=== PATIENT | male | born 1970 ===

== ENCOUNTER 2019-04-22 14:23 | Inpatient (IN) | payer OTHER ==
[2019-04-22 19:57] VITALS: BMI 26.2
--- NOTE | 2019-04-22 21:20 | HP ---
CIWA Score - Admission Criteria [facility]ASAS Guidelines: Admission for Medically Managed Detox: Requires at least one of the followin. CIWA greater than 12 2. Seizures within the past 24 hours 3. Delirium tremens within the past 24 hours 4. Hallucinations within the past 24 hours 5. Acute intervention needed for co occurring medical disorder 6. Acute intervention needed for co occurring psychiatric disorder 7. Severe withdrawal that cannot be handled at a lower level of care (continued vomiting, continued diarrhea, abnormal vital signs) requiring intravenous medication and/or fluids 8. Admission ROS S - HPI Chief Complaint: seeking inpatient rehab for cocaine and cannabis dependence Allergies/Adverse Reactions: Allergies Allergy/AdvReac Type Severity Reaction Status Date / Time No Known Allergies Allergy Verified 04/22/19 19:30 History of Present Illness: 49 Y.O. MALE WITH CANNABIS AND COCAINE DEPENDENCE HERE FOR INPATIENT REHAB. CLIENT IS REFERRED BY HIS RESIDENTIAL PROGRAM [facility]. HE IS KNOWN TO THIS PROGRAM LAST ADMISSION 4 YEARS AGO. DENIES ANY INPATIENT SUBSTANCE ABUSE TXMENT. REPORTS LONGEST CLEAN TIME 3 YEARS RELAPSING 1 MONTH AGO. DENIES HX/O SI /HI/AVH/ SEIZURE D/O. DOMICILED, DISABLED, DENIES LEGALS. Exam Limitations: Physical Impairment (LEGALLY BLIND IN BOTH EYES) - Ebola screening Have you traveled outside of the country in the last 21 days: No (N) Have you had contact with anyone from an Ebola affected area: No Do you have a fever: No - Review of Systems Constitutional: Malaise EENT: reports: Eye Pain (CHRONIC 2/2 DETACHED RETINA) Respiratory: reports: No Symptoms reported Cardiac: reports: No Symptoms Reported GI: reports: No Symptoms Reported : reports: No Symptoms Reported Musculoskeletal: reports: Back Pain (CHRONIC DUE TO HERNIATED DISK) Integumentary: reports: No Symptoms Reported Neuro: reports: No Symptoms reported Endocrine: reports: No Symptoms Reported Hematology: reports: No Symptoms Reported, Other (SICKLE CELL DISEASE) Psychiatric: reports: Orientated x3, Agitated (IRRITABLE), Anxious Other Systems: Reviewed and Negative Patient History - Patient Medical History Hx Anemia: No Hx Asthma: Yes Hx Chronic Obstructive Pulmonary Disease (COPD): No Hx Cancer: Yes (rectal cancer 11/29) Hx Cardiac Disorders: No Hx Congestive Heart Failure: No Hx Hypertension: Yes Hx Hypercholesterolemia: No Hx Pacemaker: No HX Cerebrovascular Accident: No Hx Seizures: No Hx Dementia: No Hx Diabetes: No Hx Gastrointestinal Disorders: No Hx Liver Disease: No Hx Genitourinary Disorders: No Hx Sexually Transmitted Disorders: Yes (SYPHILLIS) Hx Renal Disease (ESRD): No Hx Thyroid Disease: No Hx Human Immunodeficiency Virus (HIV): Yes Hx Hepatitis C: Yes (TX'ED) Hx Depression: No Hx Suicide Attempt: No Hx Bipolar Disorder: Yes Hx Schizophrenia: No Other Medical History: LEGALLY BLIND 2/2 DETACHED RETINA, SICKLE CELL DISEASE - Patient Surgical History Past Surgical History: Yes Other Surgical History: anal resection and colostomy reversed, R C/W DG CATH (NOT IN USE) Anesthesia Reaction: No - PPD History Previous Implant?: Yes Documented Results: Negative w/proof Implanted On Prior [facility] Admission?: Yes Date: 06/15/15 Results: 0MM PPD to be Administered?: Yes - Smoking Cessation Smoking history: Current every day smoker Have you smoked in the past 12 months: Yes Aproximately how many cigarettes per day: 6 Cigars Per Day: 0 Hx Chewing Tobacco Use: No Initiated information on smoking cessation: Yes 'Breaking Loose' booklet given: 04/22/19 - Substance & Tx. History Hx Alcohol Use: No Hx Substance Use: Yes Substance Use Type: Cocaine, Marijuana Hx Substance Use Treatment: Yes ([facility]) - Substances abused Crack Substance route: Smoking Frequency: Daily Amount used: 400 dollars Age of first use: 49 Date of last use: 04/19/19 Cocaine Substance route: Smoking Frequency: 1-2 times per week Amount used: 100 t0 200 dollars Age of first use: 39 Date of last use: 04/15/19 Marijuana/Hashish Substance route: Smoking Frequency: 1-2 times per week Amount used: 50 dollars Age of first use: 19 Date of last use: 04/15/19 Family Disease History - Family Disease History Family Disease History: Diabetes: Grandparent (, etoh), Other: Mother ( heroin, hiv) Admission Physical Exam S - Vital Signs Vital Signs: Vital Signs - 24 hr 04/22/19 19:43 Temperature 97.1 F L Pulse Rate 67 Respiratory 16 Rate Blood Pressure 104/75 - Physical General Appearance: Yes: Irritable HEENTM: Yes: EOMI (UNABLE TO ASSESS. CLIENT LEGALLY BLIND), Normocephalic, LUTHER (NOT REACTIVE. white glow to right pupil), Pharynx Normal Respiratory: Yes: Chest Non-Tender, Lungs Clear, Normal Breath Sounds, No Respiratory Distress, No Accessory Muscle Use Neck: Yes: No masses,lesions,Nodules, Supple, Trachea in good position Breast: Yes: Breast Exam Deferred Cardiology: Yes: Regular Rhythm, Regular Rate, S1, S2 Abdominal: Yes: Normal Bowel Sounds, Non Tender, Soft Genitourinary: Yes: Within Normal Limits Back: Yes: Vertebral Tenderness Musculoskeletal: Yes: full range of Motion Extremities: Yes: Normal Capillary Refill, Normal Range of Motion, Non-Tender Neurological: Yes: Fully Oriented, Alert, Motor Strength 5/5, Depressed Affect Integumentary: Yes: Dry, Warm Lymphatic: Yes: Within Normal Limits - Diagnostic (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 (7) Marijuana dependence Current Visit: Yes Status: Acute Comment: . (8) AIDS Current Visit: Yes Status: Chronic Comment: . (9) Hypertension Current Visit: Yes Status: Chronic Qualifiers: Hypertension type: essential hypertension Qualified Code(s): I10 - Essential (primary) hypertension Comment: . (10) Nicotine dependence Current Visit: Yes Status: Chronic Qualifiers: Nicotine product type: cigarettes Substance use status: uncomplicated Qualified Code(s): F17.210 - Nicotine dependence, cigarettes, uncomplicated Comment: . (11) Hx of sickle cell disease Current Visit: Yes Status: Acute (12) Port-A-Cath in place Current Visit: Yes Status: Chronic Comment: right chest Cleared for Admission [facility] - Detox or Rehab Detox Regimen/Protocol: Not Applicable Claeared for Rehab Admission: Yes Breathalyzer - Breathalyzer Breathalyzer: 0 Urine Drug Screen - Test Device Lot number: [id number] Expiration date: 01/13/21 - Control Is test valid?: Yes - Results Drug screen NEGATIVE: No Urine drug screen results: TAL-Cocaine Inpatient Rehab Admission - Rehab Decision to Admit Inpatient rehab admission?: Yes - Initial Determination Are CD services needed?: Yes Free of communicable disease: No Not in need of hospitalization: Yes - Rehab Admission Criteria Previous failed treatment: Yes Poor recovery environment: Yes Comorbidities: Yes Lacks judgement: No Patient is meeting Inpatient Rehab admission criteria:: Yes
[2019-04-22] MEDS ORDERED: MAGNESIUM CITRATE 300 ML BOTTLE PO PRN (21:29)
[2019-04-22] MEDS ORDERED: MAGNESIUM HYDROX 2400MG/30ML ORAL SUSPENSION 30 ML CUP PO PRN (21:29)
[2019-04-22] MEDS ORDERED: LOPERAMIDE HCL 2 MG CAPSULE PO PRN (21:29)
[2019-04-22] MEDS ORDERED: NICOTINE POLACRILEX 2 MG GUM BC PRN (21:29)
[2019-04-22] MEDS ORDERED: guaiFENesin 200 MG/10 ML 10 ML UNIT-DOSE CUPS PO PRN (21:29)
[2019-04-22] MEDS ORDERED: P-EPHED 60MG/TRIPROLIDI 2.5MG TABLET PO PRN (21:29)
[2019-04-22] MEDS ORDERED: ACETAMINOPHEN 325 MG TABLET (FP) PO PRN (21:29)
[2019-04-22] MEDS ORDERED: MAG HYDROX/AL HYDROX/SIMETH 30 ML UNIT-DOSE CUP PO PRN (21:29)
[2019-04-22] MEDS ORDERED: MENTHOL/PHENOL 1 EACH UD MM PRN (21:29)
[2019-04-22] MEDS ORDERED: IBUPROFEN 400 MG TABLET (FP) PO PRN (21:29)
[2019-04-22] MEDS ORDERED: hydrOXYzine PAMOATE 50 MG CAPSULE (FP) PO PRN (21:29)
[2019-04-22] MEDS ORDERED: MELATONIN 5 MG TABLETS PO PRN (22:00)
[2019-04-22] MEDS ORDERED: TUBERCULIN PPD 5 TU/0.1ML VIAL ID ONE (23:11)
[2019-04-22] MEDS: THIAMINE HCL 100 MG TABLET (FP) PO SCH (23:18)
--- NOTE | 2019-04-23 08:38 | EKG ---
Test Reason : Blood Pressure : / mmHG Vent. Rate : 063 BPM Atrial Rate : 063 BPM P-R Int : 188 ms QRS Dur : 100 ms QT Int : 424 ms P-R-T Axes : 052 012 037 degrees QTc Int : 433 ms NORMAL SINUS RHYTHM EARLY REPOLARIZATION NORMAL ECG NO PREVIOUS ECGS AVAILABLE Confirmed by GAEL LEOS, BRODERICK ([id number]) on 04/23/2019 8:37:49 AM Referred By: Confirmed By:BRODERICK MAYO MD
[2019-04-23] MEDS: PATIENT'S OWN MEDICATION (NON-FORMULARY) (Dolutegravir Sodium [Tivicay] 50 MG) PO SCH (10:38)
[2019-04-23] MEDS: SYMTUZA PO SCH (10:38)
[2019-04-23] MEDS: PRENATAL VITAMINS W/ FOLIC ACID TABLET (FP) PO SCH (10:38)
[2019-04-23] MEDS: NICOTINE 14 MG/24 HOURS TOPICAL PATCH TD SCH (10:39)
[2019-04-23 11:45] LABS: PH,URINE 7.5 (5.0-8.0); URINE APPEARANCE CLEAR; URINE BILIRUBIN NEGATIVE (NEGATIVE); URINE COLOR YELLOW; URINE GLUCOSE (UA) NEGATIVE (NEGATIVE); URINE KETONE NEGATIVE (NEGATIVE); URINE LEUK ESTERASE NEGATIVE (NEGATIVE); URINE NITRITE NEGATIVE (NEGATIVE); URINE PROTEIN NEGATIVE (NEGATIVE)
[2019-04-23 12:43] LABS: ALBUMIN 3.5 g/dl (3.4-5.0); BILIRUBIN,TOTAL 0.2 mg/dL (0.2-1); BLOOD UREA NITROGEN 8.8 mg/dL (7-18); CALCIUM 8.9 mg/dL (8.5-10.1); CREATININE 1.3 mg/dL (0.55-1.3); POTASSIUM 3.9 mmol/L (3.5-5.1); TOT PROT 7.2 g/dl (6.4-8.2)
[2019-04-23 12:44] LABS: HEMATOCRIT 41.9 % (35.4-49); HEMOGLOBIN 14.2 GM/dL (11.7-16.9); MCH 30.9 pg (25.7-33.7); MCHC 33.9 g/dl (32.0-35.9); MEAN CELL VOLUME 91.3 fl (80-96); MEAN PLT VOLUME 7.2 fl (7.5-11.1); RBC 4.59 M/mm3 (4.00-5.60); RDW 14.1 % (11.9-15.9); WHITE BLOOD COUNT 2.2 K/mm3 (4.0-10.0)
[2019-04-23 12:56] LABS: RPR REACTIVE 1:4 (NONREACTIVE)
[2019-04-23 12:57] LABS: TREPONEMA ANTIBODY PREVIOUSLY REACTIVE (NONREACTIVE)
--- NOTE | 2019-04-23 13:00 | CONSULT ---
[facility] Psychiatric Consult - Data Date of interview: 04/23/19 Admission source: [facility] Identifying data: Readmission to [facility] for this 49 y/o AA male self- referred for rehabilitative care to address addictions (cannabis, cocaine) co- morbid with substance-induced mood disorder. Examined at [address] Patient is single, no children, domiciled, unemployed, disabled (blind) and supported on [employer] funds. Substance Abuse History: Confirmed by patient in this interview. Details in current [facility] report as follows : Smoking history: Current every day smoker. Have you smoked in the past 12 months: Yes. Aproximately how many cigarettes per day: 6. Cigars Per Day: 0. Hx Chewing Tobacco Use: No. Initiated information on smoking cessation: Yes. 'Breaking Loose' booklet given: . - Substance & Tx. History. Hx Alcohol Use: No. Hx Substance Use: Yes. Substance Use Type: Cocaine, Marijuana. Hx Substance Use Treatment: Yes ([facility]) . - Substances abused. Crack. Substance route: Smoking. Frequency: Daily. Amount used: 400 dollars. Age of first use: 49. Date of last use: 03/04. Cocaine. Substance route: Smoking. Frequency: 1-2 times per week. Amount used: 100 t0 200 dollars. Age of first use: 39. Date of last use: 04/15. Marijuana/Hashish. Substance route: Smoking. Frequency: 1-2 times per week. Amount used: 50 dollars. Age of first use: 19. Date of last use: Medical History: Remarkable for HIV infection since 1999 (on ART medications), hepatitis C, antecedent of syphilis (treated), history of rectal cancer (anal resection and colostomy reversed), still with rosa cath (not in use), hypertension, sickle cell disease, blindness (detachment of retina : both eyes) and a remote history of surgery for strabismus (childhood). Psychiatric History: First contact with a psychiatrist occurred in 2012 : mood dysregulation, frequent oubursts. Patient admits to a history of " a few " psychiatric hospitalizations ([facility], [facility]) . Most recent hospitalization was in 2017 ([facility]). Mr Garcia reports the diagnosis of Bipolar Disorder and sporadic adherence to OPD care. States that he is prescribed " only trazodone 500 mg at bedtime ". Patient denies history of suicide attempts. Additional Comment: Urine drug screen results: TAL-Cocaine. Noted. Mental Status Exam - Mental Status Exam Alert and Oriented to: Time, Place, Person Cognitive Function: Good Patient Appearance: Well Groomed (fair level of personal hygiene) Mood: Withdrawn, Anxious, Apprehensive Affect: Mood Congruent, Constricted (walks with a stick ; wearing earrings) Patient Behavior: Fatigued, Appropriate, Cooperative Speech Pattern: Clear, Appropriate (fair historian) Voice Loudness: Normal Thought Process: Goal Oriented Thought Disorder: Not Present Hallucinations: Denies Suicidal Ideation: Denies Homicidal Ideation: Denies Insight/Judgement: Fair Sleep: Poorly, Difficulty falling asleep Appetite: Good Gait/Station: Normal (needs someone for assistance in his moves around the unit) Psychiatric Findings - Problem List ([place] 1, 2,3) (1) Cocaine dependence Current Visit: Yes Status: Chronic Comment: . (2) Marijuana dependence Current Visit: Yes Status: Chronic Comment: . (3) Nicotine dependence Current Visit: Yes Status: Chronic Qualifiers: Nicotine product type: cigarettes Substance use status: uncomplicated Qualified Code(s): F17.210 - Nicotine dependence, cigarettes, uncomplicated Comment: . (4) Substance induced mood disorder Current Visit: Yes Status: Chronic (5) Insomnia Current Visit: Yes Status: Chronic Comment: . - Initial Treatment Plan Initial Treatment Plan: Falls precautions. Sleep hygiene. Psychoeducation. Support. Groups. Trazodone 100 mg po hs. Patient is made aware of the potential for priapism. Agrees with this plan of care. Observation.
[2019-04-23 19:19] LABS: PLATELET COUNT 210 K/MM3 (134-434)
[2019-04-23] MEDS: THIAMINE HCL 100 MG TABLET (FP) PO SCH (21:24)
[2019-04-23] MEDS: traZODone HCL 50 MG TABLET (FP) PO SCH (21:25)
[2019-04-24] MEDS: NICOTINE 14 MG/24 HOURS TOPICAL PATCH TD SCH (09:53)
[2019-04-24] MEDS: SYMTUZA PO SCH (09:53)
[2019-04-24] MEDS: PRENATAL VITAMINS W/ FOLIC ACID TABLET (FP) PO SCH (09:53)
[2019-04-24] MEDS: PATIENT'S OWN MEDICATION (NON-FORMULARY) (Dolutegravir Sodium [Tivicay] 50 MG) PO SCH (09:53)
[2019-04-24] MEDS: THIAMINE HCL 100 MG TABLET (FP) PO SCH (21:43)
[2019-04-24] MEDS: traZODone HCL 50 MG TABLET (FP) PO SCH (21:44)
[2019-04-25] MEDS: PRENATAL VITAMINS W/ FOLIC ACID TABLET (FP) PO SCH (10:56)
[2019-04-25] MEDS: PATIENT'S OWN MEDICATION (NON-FORMULARY) (Dolutegravir Sodium [Tivicay] 50 MG) PO SCH (10:56)
[2019-04-25] MEDS: SYMTUZA PO SCH (10:56)
[2019-04-25] MEDS: NICOTINE 14 MG/24 HOURS TOPICAL PATCH TD SCH (10:56)
[2019-04-25] MEDS: THIAMINE HCL 100 MG TABLET (FP) PO SCH (21:41)
[2019-04-25] MEDS: traZODone HCL 50 MG TABLET (FP) PO SCH (21:41)
[2019-04-26 07:01] VITALS: BP 119/79; PULSE 71; TEMP 97.6
--- NOTE | 2019-04-26 10:42 | PN ---
[facility] Progress Note (SOAP) Subjective: PT IS A 49 Y/O MALE WHO WAS ADMITTED ON 04/22/19 TO REHAB. PT EXPRESSED TO NURSING STAFF HE WANTS TO SIGN OUT TODAY TO GET BACK TO HIS HOME LIVING ARRANGEMENTS. PT REPORTS HE HAS A PCP DR. LOWE AT [facility]. PT MET WITH THE COUNSELOR KRANTHI BAE AND PT HAS BEEN RECOMMENDED TO THE [facility] ON [address], [place] FOR OUTPATIENT CD AFTERCARE. PT HAS A HX OF LEGALLY BLIND IN BOTH EYES AND AMBULATES WITH A LONG PROBING CANE. HX DG- CATH. ALERT O X 3. DENIES S/H/I. Objective: 04/26/19 12:08 Vital Signs - 24 hr 04/26/19 04/26/19 04/26/19 00:30 03:30 07:01 Temperature 97.6 F Pulse Rate 71 Respiratory 18 18 17 Rate Blood Pressure 119/79 Laboratory Tests 04/23/19 04/23/19 04/23/19 09:00 10:20 10:20 WBC 2.2 L RBC 4.59 Hgb 14.2 Hct 41.9 MCV 91.3 MCH 30.9 MCHC 33.9 RDW 14.1 Plt Count 210 MPV 7.2 L Sodium 144 Potassium 3.9 Chloride 108 H Carbon Dioxide 32 Anion Gap 5 L BUN 8.8 Creatinine 1.3 Est GFR (CKD-EPI)AfAm 73.74 Est GFR (CKD-EPI)NonAf 63.62 Random Glucose 79 Calcium 8.9 Total Bilirubin 0.2 AST 21 ALT 23 Alkaline Phosphatase 69 Total Protein 7.2 Albumin 3.5 Urine Color Yellow Urine Appearance Clear Urine pH 7.5 Ur Specific [place] 1.015 Urine Protein Negative Urine Glucose (UA) Negative Urine Ketones Negative Urine Blood Negative Urine Nitrite Negative Urine Bilirubin Negative Urine Urobilinogen 1.0 Ur Leukocyte Esterase Negative RPR Titer T.pallidum Ab (A) 04/23/19 10:20 WBC RBC Hgb Hct MCV MCH MCHC RDW Plt Count MPV Sodium Potassium Chloride Carbon Dioxide Anion Gap BUN Creatinine Est GFR (CKD-EPI)AfAm Est GFR (CKD-EPI)NonAf Random Glucose Calcium Total Bilirubin AST ALT Alkaline Phosphatase Total Protein Albumin Urine Color Urine Appearance Urine pH Ur Specific [place] Urine Protein Urine Glucose (UA) Urine Ketones Urine Blood Urine Nitrite Urine Bilirubin Urine Urobilinogen Ur Leukocyte Esterase RPR Titer Reactive 1:4 H T.pallidum Ab (A) Previously reactive Assessment: 04/26/19 12:08 NAD Plan: PT SIGNED OUT AMA FOLLOW UP WITH CD AFTERCARE RECOMMENDATION. FOLLOW UP WITH PCP FOR MEDICAL MANAGEMENT WITHIN 1 WEEK AFTER DISCHARGE.
[2019-04-26] MEDS: PATIENT'S OWN MEDICATION (NON-FORMULARY) (Dolutegravir Sodium [Tivicay] 50 MG) PO SCH (10:56)
[2019-04-26] MEDS: SYMTUZA PO SCH (10:56)
[2019-04-26] MEDS: NICOTINE 14 MG/24 HOURS TOPICAL PATCH TD SCH (10:56)
[2019-04-26] MEDS: PRENATAL VITAMINS W/ FOLIC ACID TABLET (FP) PO SCH (10:56)
== END 2019-04-26 12:40 | disposition left against medical advice (07) | DRG 770 ==
LOC: YASAS 14:23 → Y5N 22:23
PROVIDERS: ADMIT Neuromusculoskeletal Medicine & OMM; ATTEND Neuromusculoskeletal Medicine & OMM
PROC: HZ42ZZZ Group Counseling for Substance Abuse Treatment, Cognitive-Behavioral (ICD-10-PCS; principal; 2019-04-22)
DX: F14.20 Cocaine dependence, uncomplicated (principal); F12.20 Cannabis dependence, uncomplicated; F17.210 Nicotine dependence, cigarettes, uncomplicated; F19.24 Other psychoactive substance dependence with psychoactive substance-induced mood disorder; F31.9 Bipolar disorder, unspecified; B20 Human immunodeficiency virus [HIV] disease; G47.00 Insomnia, unspecified; I10 Essential (primary) hypertension; H33 Retinal detachments and breaks; H54.8 Legal blindness, as defined in USA; Z86.2 Personal history of diseases of the blood and blood-forming organs and certain disorders involving the immune mechanism; R26.2 Difficulty in walking, not elsewhere classified; Z99.89 Dependence on other enabling machines and devices; Z95.828 Presence of other vascular implants and grafts; Z86.19 Personal history of other infectious and parasitic diseases; Z85.048 Personal history of other malignant neoplasm of rectum, rectosigmoid junction, and anus
CPT/HCPCS: 36415; 80053; 81003; 85027; 86593; 86780; 93005; 93010

== ENCOUNTER 2023-01-19 13:38 | Inpatient (IN) | payer OTHER ==
[2023-01-19 14:14] VITALS: BMI 25.7
[2023-01-19] MEDS ORDERED: LOPERAMIDE HCL 2 MG CAPSULE PO PRN (15:55)
[2023-01-19] MEDS ORDERED: chlordiazePOXIDE HCL 25 MG CAPSULE PO PRN (15:55)
[2023-01-19] MEDS ORDERED: ACETAMINOPHEN 325 MG TABLET (FP) PO PRN ×2 (15:55)
[2023-01-19] MEDS ORDERED: MAG HYDROX/AL HYDROX/SIMETH 30 ML UNIT-DOSE CUP PO PRN (15:55)
[2023-01-19] MEDS ORDERED: BACLOFEN 10 MG TABLET (FP) PO PRN (15:55)
[2023-01-19] MEDS ORDERED: MAGNESIUM HYDROX 2400MG/30ML ORAL SUSPENSION 30 ML CUP PO PRN (15:55)
[2023-01-19] MEDS ORDERED: NALOXONE HCL (KLOXXADO) 8 MG SPRAY NS PRN (15:55)
[2023-01-19] MEDS ORDERED: POLYETHYLENE GLYCOL (HEALTHYLAX) 3350 17 GM PACKET PO PRN (15:55)
[2023-01-19] MEDS ORDERED: NICOTINE 10 MG CARTRIDGE (INHALER) IH PRN (15:55)
[2023-01-19] MEDS ORDERED: IBUPROFEN 400 MG TABLET (FP) PO PRN (15:55)
[2023-01-19] MEDS ORDERED: BISMUTH SUBSALICYLATE 524 MG/30 ML PO PRN (15:55)
[2023-01-19] MEDS ORDERED: hydrOXYzine PAMOATE 25 MG CAPSULE (FP) PO PRN (15:55)
[2023-01-19] MEDS ORDERED: IBUPROFEN 600 MG TABLET (FP) PO PRN (15:55)
[2023-01-19] MEDS ORDERED: DICYCLOMINE HCL 10 MG CAPSULE PO PRN (15:55)
[2023-01-19] MEDS ORDERED: BENZOCAINE/MENTHOL (CHLORASEPTIC ) LOZENGE MM PRN (15:55)
[2023-01-19] MEDS ORDERED: ONDANSETRON *ODT* 4 MG TABLET SL PRN (15:55)
[2023-01-19] MEDS: chlordiazePOXIDE HCL 25 MG CAPSULE PO SCH ×2 (19:13→22:45)
[2023-01-19] MEDS: PRENATAL VITAMINS W/ FOLIC ACID TABLET (FP) PO SCH (19:15)
[2023-01-19] MEDS: THIAMINE HCL 100 MG TABLET (FP) PO SCH (22:44)
[2023-01-19] MEDS: MELATONIN 5 MG TABLETS PO SCH (22:44)
[2023-01-20] MEDS: chlordiazePOXIDE HCL 25 MG CAPSULE PO SCH (05:57)
[2023-01-20] MEDS ORDERED: diazePAM 5 MG TABLET PO PRN (09:39)
[2023-01-20] MEDS: diazePAM 5 MG TABLET PO SCH ×3 (10:05→22:41)
[2023-01-20] MEDS: PRENATAL VITAMINS W/ FOLIC ACID TABLET (FP) PO SCH (10:05)
[2023-01-20 11:05] LABS: HEMATOCRIT 43.4 % (35.4-49); HEMOGLOBIN 14.2 GM/dL (11.7-16.9); MCH 28.9 pg (25.7-33.7); MCHC 32.8 g/dl (32.0-35.9); PLATELET COUNT 268 10^3/uL (134-434); RBC 4.93 M/mm3 (4.00-5.60); RDW 14.3 % (11.9-15.9); WHITE BLOOD COUNT 2.7 K/mm3 (4.0-10.0)
[2023-01-20 11:12] LABS: CALCIUM 9.3 mg/dL (8.5-10.1)
[2023-01-20 11:13] LABS: ALBUMIN 3.4 g/dl (3.4-5.0); BLOOD UREA NITROGEN 12.5 mg/dL (7-18)
[2023-01-20 11:18] LABS: CREATININE 1.1 mg/dL (0.55-1.3); TOT PROT 7.2 g/dl (6.4-8.2)
[2023-01-20 11:26] LABS: BILIRUBIN,TOTAL 0.2 mg/dL (0.2-1)
[2023-01-20] MEDS: LACTULOSE 20 GM/30 ML UDC (FOR ORAL USE ONLY) PO SCH ×3 (13:56→22:41)
[2023-01-20] MEDS: ARTIFICIAL TEARS (POLYVINYL ALCOHOL) OPTH DROPS OU PRN ×2 (17:20→22:43)
[2023-01-20] MEDS: QUEtiapine FUMARATE 50 MG TABLET PO SCH (22:40)
[2023-01-20] MEDS: MELATONIN 5 MG TABLETS PO SCH (22:40)
[2023-01-20] MEDS: THIAMINE HCL 100 MG TABLET (FP) PO SCH (22:40)
[2023-01-21] MEDS ORDERED: chlordiazePOXIDE HCL 25 MG CAPSULE PO SCH (05:00)
[2023-01-21] MEDS: diazePAM 5 MG TABLET PO SCH ×4 (06:00→22:49)
[2023-01-21] MEDS: PRENATAL VITAMINS W/ FOLIC ACID TABLET (FP) PO SCH (10:50)
[2023-01-21] MEDS: LACTULOSE 20 GM/30 ML UDC (FOR ORAL USE ONLY) PO SCH ×4 (10:50→22:49)
[2023-01-21] MEDS: ARTIFICIAL TEARS (POLYVINYL ALCOHOL) OPTH DROPS OU PRN (17:51)
[2023-01-21] MEDS: THIAMINE HCL 100 MG TABLET (FP) PO SCH (22:49)
[2023-01-21] MEDS: MELATONIN 5 MG TABLETS PO SCH (22:49)
[2023-01-21] MEDS: QUEtiapine FUMARATE 50 MG TABLET PO SCH (22:52)
[2023-01-22] MEDS ORDERED: chlordiazePOXIDE HCL 10 MG CAPSULE PO PRN
[2023-01-22] MEDS ORDERED: chlordiazePOXIDE HCL 10 MG CAPSULE PO SCH (05:00)
[2023-01-22] MEDS: diazePAM 5 MG TABLET PO SCH ×3 (06:13→22:41)
[2023-01-22] MEDS: PRENATAL VITAMINS W/ FOLIC ACID TABLET (FP) PO SCH (10:39)
[2023-01-22] MEDS: LACTULOSE 20 GM/30 ML UDC (FOR ORAL USE ONLY) PO SCH ×4 (10:39→22:46)
[2023-01-22] MEDS: ARTIFICIAL TEARS (POLYVINYL ALCOHOL) OPTH DROPS OU PRN ×2 (13:20→17:28)
[2023-01-22] MEDS: THIAMINE HCL 100 MG TABLET (FP) PO SCH (22:40)
[2023-01-22] MEDS: QUEtiapine FUMARATE 50 MG TABLET PO SCH (22:42)
[2023-01-22] MEDS: MELATONIN 5 MG TABLETS PO SCH (22:42)
[2023-01-23] MEDS ORDERED: chlordiazePOXIDE HCL 10 MG CAPSULE PO SCH (05:00)
[2023-01-23] MEDS ORDERED: diazePAM 5 MG TABLET PO SCH (06:00)
[2023-01-23 09:47] VITALS: RESP 18
[2023-01-23] MEDS ORDERED: DARUNAVIR/COB/EMTRI/TENOF (SYMTUZA) TABLET (NF) PO SCH (10:30)
[2023-01-23] MEDS ORDERED: DOLUTEGRAVIR SODIUM 50 MG TABLET (NON-FORMULARY) PO SCH (10:30)
[2023-01-23] MEDS: LACTULOSE 20 GM/30 ML UDC (FOR ORAL USE ONLY) PO SCH ×2 (10:59→14:40)
[2023-01-23] MEDS: PRENATAL VITAMINS W/ FOLIC ACID TABLET (FP) PO SCH (10:59)
[2023-01-23] MEDS: ARTIFICIAL TEARS (POLYVINYL ALCOHOL) OPTH DROPS OU PRN (11:00)
[2023-01-23 13:07] VITALS: BP 101/73; PULSE 90; TEMP 98
[2023-01-23] MEDS ORDERED: SULFAMETHOXAZOLE/TRIMETHOPRIM 800MG/160MG D.S. TABLET PO SCH (14:00)
[2023-01-23] MEDS ORDERED: BICTEGRAV/EMTRICIT/TENOFOV (BIKTARVY) 50-200-25 MG TABLET PO SCH (14:00)
[2023-01-24] MEDS ORDERED: chlordiazePOXIDE HCL 10 MG CAPSULE PO ONE (05:00)
[2023-01-24] MEDS ORDERED: diazePAM 5 MG TABLET PO ONE (06:00)
[2023-01-24] MEDS ORDERED: ACETAMINOPHEN 500 MG TABLET (FP) PO SCH (10:00)
== END 2023-01-23 14:55 | disposition other institution (70) | DRG 774 ==
LOC: SUATTDRO 13:38 → YASAS 13:38 → Y3N 16:22
PROVIDERS: ADMIT Allergy & Immunology; ATTEND Surgery
PROC: HZ2ZZZZ Detoxification Services for Substance Abuse Treatment (ICD-10-PCS; principal; 2023-01-19)
DX: F10.230 Alcohol dependence with withdrawal, uncomplicated (principal); F14.20 Cocaine dependence, uncomplicated; F12.20 Cannabis dependence, uncomplicated; F17.210 Nicotine dependence, cigarettes, uncomplicated; F31.9 Bipolar disorder, unspecified; F19.282 Other psychoactive substance dependence with psychoactive substance-induced sleep disorder; F19.24 Other psychoactive substance dependence with psychoactive substance-induced mood disorder; F39 Unspecified mood [affective] disorder; F41.9 Anxiety disorder, unspecified; B20 Human immunodeficiency virus [HIV] disease; Z79.899 Other long term (current) drug therapy; H54.8 Legal blindness, as defined in USA; Z85.048 Personal history of other malignant neoplasm of rectum, rectosigmoid junction, and anus; Z86.19 Personal history of other infectious and parasitic diseases; Z99.89 Dependence on other enabling machines and devices; Z88.1 Allergy status to other antibiotic agents
CPT/HCPCS: 36415; 80053; 82140; 85027; 86593; 86780; 93005; 93010; C9803-CS; U0003; U0005

== ENCOUNTER 2023-01-23 14:57 | Inpatient (IN) | payer OTHER ==
[2023-01-23] MEDS ORDERED: LOPERAMIDE HCL 2 MG CAPSULE PO PRN (15:29)
[2023-01-23] MEDS ORDERED: POLYETHYLENE GLYCOL (HEALTHYLAX) 3350 17 GM PACKET PO PRN (15:29)
[2023-01-23] MEDS ORDERED: MAGNESIUM HYDROX 2400MG/30ML ORAL SUSPENSION 30 ML CUP PO PRN (15:29)
[2023-01-23] MEDS ORDERED: ACETAMINOPHEN 325 MG TABLET (FP) PO PRN (15:29)
[2023-01-23] MEDS ORDERED: IBUPROFEN 400 MG TABLET (FP) PO PRN (15:29)
[2023-01-23] MEDS ORDERED: P-EPHED 60MG/TRIPROLIDI 2.5MG TABLET PO PRN (15:29)
[2023-01-23] MEDS ORDERED: hydrOXYzine PAMOATE 25 MG CAPSULE (FP) PO PRN (15:29)
[2023-01-23] MEDS ORDERED: MAG HYDROX/AL HYDROX/SIMETH 30 ML UNIT-DOSE CUP PO PRN (15:29)
[2023-01-23] MEDS ORDERED: guaiFENesin 200 MG/10 ML 10 ML UNIT-DOSE CUPS PO PRN (15:29)
[2023-01-23] MEDS ORDERED: NICOTINE 10 MG CARTRIDGE (INHALER) IH PRN (15:29)
[2023-01-23] MEDS ORDERED: BENZOCAINE/MENTHOL (CHLORASEPTIC ) LOZENGE MM PRN (15:29)
[2023-01-23] MEDS: LACTULOSE 20 GM/30 ML UDC (FOR ORAL USE ONLY) PO SCH ×2 (18:01→21:58)
[2023-01-23] MEDS: THIAMINE HCL 100 MG TABLET (FP) PO SCH (21:58)
[2023-01-23] MEDS: MELATONIN 5 MG TABLETS PO SCH (21:59)
[2023-01-23] MEDS ORDERED: QUEtiapine FUMARATE 50 MG TABLET PO SCH (22:00)
[2023-01-24] MEDS: BICTEGRAV/EMTRICIT/TENOFOV (BIKTARVY) 50-200-25 MG TABLET PO SCH (10:36)
[2023-01-24] MEDS: NICOTINE 7 MG/24 HOURS TOPICAL PATCH TD SCH (10:36)
[2023-01-24] MEDS: PRENATAL VITAMINS W/ FOLIC ACID TABLET (FP) PO SCH (10:36)
[2023-01-24] MEDS: LACTULOSE 20 GM/30 ML UDC (FOR ORAL USE ONLY) PO SCH ×4 (10:36→21:56)
[2023-01-24] MEDS: SULFAMETHOXAZOLE/TRIMETHOPRIM 800MG/160MG D.S. TABLET PO SCH (10:36)
[2023-01-24] MEDS: THIAMINE HCL 100 MG TABLET (FP) PO SCH (21:55)
[2023-01-24] MEDS: QUEtiapine FUMARATE 50 MG TABLET PO SCH (21:55)
[2023-01-24] MEDS: MELATONIN 5 MG TABLETS PO SCH (21:55)
[2023-01-25] MEDS: PRENATAL VITAMINS W/ FOLIC ACID TABLET (FP) PO SCH (09:58)
[2023-01-25] MEDS: SULFAMETHOXAZOLE/TRIMETHOPRIM 800MG/160MG D.S. TABLET PO SCH (09:58)
[2023-01-25] MEDS: ARTIFICIAL TEARS (POLYVINYL ALCOHOL) OPTH DROPS OU PRN (09:58)
[2023-01-25] MEDS: LACTULOSE 20 GM/30 ML UDC (FOR ORAL USE ONLY) PO SCH ×4 (09:58→21:50)
[2023-01-25] MEDS: BICTEGRAV/EMTRICIT/TENOFOV (BIKTARVY) 50-200-25 MG TABLET PO SCH (09:58)
[2023-01-25] MEDS: NICOTINE 7 MG/24 HOURS TOPICAL PATCH TD SCH (10:01)
[2023-01-25] MEDS: QUEtiapine FUMARATE 50 MG TABLET PO SCH (21:49)
[2023-01-25] MEDS: MELATONIN 5 MG TABLETS PO SCH (21:49)
[2023-01-25] MEDS: THIAMINE HCL 100 MG TABLET (FP) PO SCH (21:49)
[2023-01-26 06:51] VITALS: BP 125/80; PULSE 88; RESP 17; TEMP 97.6
[2023-01-26] MEDS: LACTULOSE 20 GM/30 ML UDC (FOR ORAL USE ONLY) PO SCH (09:55)
[2023-01-26] MEDS: PRENATAL VITAMINS W/ FOLIC ACID TABLET (FP) PO SCH (09:55)
[2023-01-26] MEDS: SULFAMETHOXAZOLE/TRIMETHOPRIM 800MG/160MG D.S. TABLET PO SCH (09:55)
[2023-01-26] MEDS: NICOTINE 7 MG/24 HOURS TOPICAL PATCH TD SCH (09:55)
[2023-01-26] MEDS: BICTEGRAV/EMTRICIT/TENOFOV (BIKTARVY) 50-200-25 MG TABLET PO SCH (09:55)
[2023-01-26] MEDS: ARTIFICIAL TEARS (POLYVINYL ALCOHOL) OPTH DROPS OU PRN (11:51)
[2023-01-26] MEDS ORDERED: LACTULOSE 20 GM/30 ML UDC (FOR ORAL USE ONLY) PO SCH ×2 (14:00→22:00)
== END 2023-01-26 14:31 | disposition left against medical advice (07) | DRG 770 ==
LOC: YASAS 14:57 → Y3E 14:58
PROVIDERS: ADMIT Allergy & Immunology; ATTEND Allergy & Immunology
PROC: HZ42ZZZ Group Counseling for Substance Abuse Treatment, Cognitive-Behavioral (ICD-10-PCS; principal; 2023-01-23)
DX: F10.20 Alcohol dependence, uncomplicated (principal); F14.20 Cocaine dependence, uncomplicated; F12.20 Cannabis dependence, uncomplicated; F17.210 Nicotine dependence, cigarettes, uncomplicated; F19.282 Other psychoactive substance dependence with psychoactive substance-induced sleep disorder; F19.24 Other psychoactive substance dependence with psychoactive substance-induced mood disorder; F43.25 Adjustment disorder with mixed disturbance of emotions and conduct; F31.9 Bipolar disorder, unspecified; F39 Unspecified mood [affective] disorder; B20 Human immunodeficiency virus [HIV] disease; I10 Essential (primary) hypertension; H54.8 Legal blindness, as defined in USA; Z99.89 Dependence on other enabling machines and devices; Z86.2 Personal history of diseases of the blood and blood-forming organs and certain disorders involving the immune mechanism; Z85.048 Personal history of other malignant neoplasm of rectum, rectosigmoid junction, and anus; Z95.828 Presence of other vascular implants and grafts; Z79.899 Other long term (current) drug therapy; F91.8 Other conduct disorders; Z91.199 Patient's noncompliance with other medical treatment and regimen due to unspecified reason